=== PATIENT | female | born 1965 | race Hispanic/Latino ===

== ENCOUNTER 2017-11-23 08:54 | Emergency (ER) | payer MEDICARE, OTHER ==
--- NOTE | 2017-11-23 11:26 | ED PDOC ---
Upper Extremity Pain/Injury Time Seen by Provider: 11/23/17 09:22 Chief Complaint (Nursing): Upper Extremity Problem/Injury Chief Complaint (Provider): Right Elbow Pain History Per: Patient History/Exam Limitations: no limitations Onset/Duration Of Symptoms: Days (x1 week) Current Symptoms Are (Timing): Still Present Additional Complaint(s): 52 y/o female with multiple medical problems, notably end stage renal disease, who presents to the ED with right elbow pain x1 week. Patient believes the pain is due to overuse during occupational therapy. She states the pain is mostly on the lateral elbow and worsens with supination or pronation of the forearm. she says it feels like the lateral elbow is somewhat swollen. Denies falls or trauma. Also denies wrist or shoulder pain. PMD: Provider DENEEN Past Medical History Reviewed: Historical Data, Nursing Documentation, Vital Signs Vital Signs: Last Vital Signs Temp 97.0 F L 11/23/17 09:55 Pulse 85 11/23/17 09:55 Resp 19 11/23/17 09:55 BP 183/77 H 11/23/17 09:55 Pulse Ox 98 11/23/17 09:55 - Medical History PMH: Anemia (Pt states unsure), COPD, Depression, Diabetes, Gastritis, GERD, HTN , Hypercholesterolemia, Peripheral Edema, End Stage Renal Disease, Chronic Kidney Disease Denies: Bronchitis - Surgical History Other surgeries: Left AKA, right foot surgery - Family History Family History: States: Unknown Family Hx - Social History Ex-Smoker (has not smoked in the last 12 months): Yes Alcohol: None Drugs: Denies - Immunization History Hx Tetanus Toxoid Vaccination: Yes Hx Influenza Vaccination: Yes (2016) Hx Pneumococcal Vaccination: Yes - Home Medications Home Medications: Ambulatory Orders Medication Instructions Recorded Clopidogrel [Plavix] 75 mg PO DAILY 10/11/15 Fenofibrate [Tricor] 48 mg PO DAILY 10/11/15 Famotidine [Pepcid] 20 mg PO DAILY #0 tab 01/16/16 Sucralfate [Carafate] 1 tab PO TID 06/18/17 Vitamin B Complex/Vit C/Folic 1 tab PO DAILY 06/18/17 [Nephro-Chavez] Insulin Detemir [Levemir] 30 units SC HS #5 unit 06/25/17 Aspirin [Ecotrin] 325 mg PO DAILY 08/17/17 Calcium Acetate [Phoslo] 3 tab PO TID 08/17/17 Insulin Aspart [Novolog Flexpen] 24 units SC AC 08/17/17 Pregabalin [Lyrica] 50 mg PO BID 08/17/17 Gentamicin 60 mg IVPB Q48H vial 10/14/17 oxyCODONE/Acetaminophen [Percocet 1 tab PO Q6H PRN #20 tab 10/14/17 5/325 mg Tab] traMADol [Ultram] 50 mg PO TID PRN #12 tab 11/23/17 - Allergies Allergies/Adverse Reactions: Allergies Allergy/AdvReac Type Severity Reaction Status Date / Time azithromycin [From Zithromax] Allergy RASH Verified 11/23/17 09:34 ciprofloxacin [From Cipro] Allergy RASH Verified 11/23/17 09:34 ciprofloxacin HCl Allergy RASH Verified 11/23/17 09:34 [From Cipro] clindamycin Allergy RASH Verified 11/23/17 09:34 Iodinated Contrast- Oral and Allergy ITCHING Verified 11/23/17 09:34 IV Dye levofloxacin Allergy RASH Verified 11/23/17 09:34 linezolid Allergy RASH Verified 11/23/17 09:34 macadamia nut oil Allergy RASH Verified 11/23/17 09:34 Penicillins Allergy RASH Verified 11/23/17 09:34 rosuvastatin Allergy RASH Verified 11/23/17 09:34 vancomycin Allergy RASH Verified 11/23/17 09:34 zolpidem Allergy FATIGUE Verified 11/23/17 09:34 hazelnuts Allergy Mild RASH Uncoded 11/23/17 09:34 Review of Systems ROS Statement: Except As Marked, All Systems Reviewed And Found Negative Musculoskeletal: Positive for: Arm Pain (right elbow). Negative for: Shoulder Pain, Hand Pain Physical Exam - Reviewed Nursing Documentation Reviewed: Yes Vital Signs Reviewed: Yes - Physical Exam Appears: Positive for: Non-toxic, No Acute Distress Head Exam: Positive for: ATRAUMATIC Skin: Positive for: Normal Color Eye Exam: Positive for: Normal appearance Extremity: Positive for: Normal ROM (RUE), Tenderness (RUE point tenderness to lateral epicondyle). Negative for: Deformity (RUE) Neurologic/Psych: Positive for: Alert, Oriented - ECG O2 Sat by Pulse Oximetry: 98 (RA) Pulse Ox Interpretation: Normal Medical Decision Making Medical Decision Makin Plan: --X-Ray right elbow --Motrin 400mg PO --Pepcid 20mg PO Right elbow X-ray shows no acute abnormality. Will give Motrin and Pepcid for pain. Kaushik bandage applied and patient instructed to follow up with PMD or Orthopedics for further treatment. Scribe Attestation: Documented by Lavon Fontanez, acting as a scribe for Kevin Chang III, DO. Provider Scribe Attestation: All medical record entries made by the Scribe were at my direction and personally dictated by me. I have reviewed the chart and agree that the record accurately reflects my personal performance of the history, physical exam, medical decision making, and the department course for this patient. I have also personally directed, reviewed, and agree with the discharge instructions and disposition. Disposition - Clinical Impression Clinical Impression: Lateral epicondylitis of elbow - Patient ED Disposition Is Patient to be Admitted: No Counseled Patient/Family Regarding: Studies Performed, Diagnosis, Need For Followup, Rx Given - Disposition Referrals: Indra Morales III, MD [Staff Provider] - Disposition: Routine/Home Disposition Time: 11:20 Condition: STABLE Additional Instructions: Return to ER for any worse or new symptoms/ Use medication as directed. Followup with PMD or orthopedics for further treatment or testing. Prescriptions: traMADol [Ultram] 50 mg PO TID PRN #12 tab PRN Reason: Pain, Moderate (4-7) Instructions: Lateral Epicondylitis (DC) Forms: [facility] (Slovenian)
[2017-11-23 11:45] VITALS: BP 150/68; PULSE 86; RESP 22; TEMP 98.1
[2017-11-23 11:47] VITALS: O2SAT 98
--- NOTE | 2017-11-23 11:49 | RAD ---
PROCEDURE: Right elbow dated 11/23/2017 HISTORY: R elbow pain COMPARISON: No prior. FINDINGS: BONES: Normal. No fracture. JOINTS: Normal. No osteoarthritis. SOFT TISSUES: Normal. JOINT EFFUSION: None. OTHER FINDINGS: None. IMPRESSION: No evidence of acute displaced fracture nor dislocation. If symptoms persist or occult fracture suspected clinically recommend repeat radiographs in 5-10 days as most fractures should become radiographically evident in this timeframe. Unremarkable radiographs of the right elbow.
== END 2017-11-23 11:45 | disposition home or self-care (01) ==
LOC: H.ER 08:54
DX: M77.11 Lateral epicondylitis, right elbow (principal); E78.00 Pure hypercholesterolemia, unspecified; F32.9 Major depressive disorder, single episode, unspecified; I12.0 Hypertensive chronic kidney disease with stage 5 chronic kidney disease or end stage renal disease; N18.6 End stage renal disease; Z79.4 Long term (current) use of insulin; Z79.82 Long term (current) use of aspirin; Z88.0 Allergy status to penicillin; Z89.612 Acquired absence of left leg above knee